=== PATIENT | male | born 1945 | race Caucasian/White ===

== ENCOUNTER 2016-07-04 08:24 | Emergency (ER) | payer MEDICARE | END 2016-07-04 10:50 | disposition home or self-care (01) | LOC: ED 08:24 | DX: S01.21XA Laceration without foreign body of nose, initial encounter (principal); S06.0X9A Concussion with loss of consciousness of unspecified duration, initial encounter; R42 Dizziness and giddiness; W18.30XA Fall on same level, unspecified, initial encounter; Y93.B3 Activity, free weights; Y92.9 Unspecified place or not applicable ==